=== PATIENT | female | born 1980 | race Two or more races ===

== ENCOUNTER 2021-03-11 20:42 | Emergency (ER) | payer BC ==
[~2021-03-11] VITALS: Ht 154.9 cm; Wt 104.3 kg
[2021-03-11] MEDS ORDERED: BENZOCAINE (DENTAL) 20 % SPRAY 60ML MT ONE (23:00)
[2021-03-11] MEDS ORDERED: KETOROLAC TROMETH 60MG/2ML VIAL IM ONE (23:00)
[2021-03-12 00:01] VITALS: BP 140/67
== END 2021-03-12 00:07 | disposition home or self-care (01) ==
LOC: ER 20:42
DX: K03.81 Cracked tooth (principal); E66.9 Obesity, unspecified; Z68.41 Body mass index [BMI] 40.0-44.9, adult
CPT/HCPCS: 96372; 99283; J1885